=== PATIENT | female | born 1940 | race Caucasian/White ===

== ENCOUNTER 2021-09-20 14:51 | Emergency (ER) | payer MEDICARE ==
[~2021-09-20] VITALS: Ht 165.1 cm; Wt 58.2 kg
[2021-09-20 15:21] VITALS: BP 130/75
[2021-09-20] MEDS ORDERED: HYDROcodone/APAP 5/325MG 1 TAB TABLET PO ONE (16:00)
--- NOTE | 2021-09-20 16:18 | RAD ---
Exam: Left wrist 3 views INDICATION: Fall, pain TECHNIQUE: Frontal, lateral and oblique views of the left wrist Comparisons: None FINDINGS: Obliquely oriented fracture through the radial metaphysis. There is an impacted fracture of the dista l ulna. Diffuse osteopenia. There is degenerative change at the first CMC joint. Soft tissue swelling surrounding the left wrist. IMPRESSION: Obliquely oriented fracture of the distal radial metaphysis is a impacted fracture of the distal ulna Electronically signed by: Velasquez Long MD (09/20/2021 4:16 PM) HECTOR
--- NOTE | 2021-09-20 17:20 | PHYS DOC ---
Past Medical History Past Medical History: COPD Past Surgical History: Additional Past Surgical Histo: NASOPLASTY Smoking Status: Current Every Day Smoker Alcohol Use: None Drug Use: None General Adult EDM: Chief Complaint: WRIST PAIN HPI: HPI: Patient is a 81 year old female presenting to the ED today complaining of moderate left wrist pain, symptoms began after she fell 2 hours ago. Patient denies any loss of consciousness. Review of Systems: Review of Systems: Constitutional: Denies fever or chills. [] Musculoskeletal: reports left wrist pain Integument: Denies rash. [] Neurologic: Denies headache, focal weakness or sensory changes. [] Psychiatric: Denies depression or anxiety. [] Heart Score: C/O Chest Pain: N/A Risk Factors: Risk Factors: DM, Current or recent (<one month) smoker, HTN, HLP, family history of CAD, obesity. Risk Scores: Score 0 - 3: 2.5% MACE over next 6 weeks - Discharge Home Score 4 - 6: 20.3% MACE over next 6 weeks - Admit for Clinical Observation Score 7 - 10: 72.7% MACE over next 6 weeks - Early Invasive Strategies Current Medications: Current Medications Medications (Trade) Dose Ordered Sig/Jos Start Time Stop Time Status Last Admin Dose Admin Acetaminophen/ Hydrocodone Bitart (Lortab 5/325) 2 tab 1X ONCE 09/20/21 16:00 09/20/21 16:02 DC 09/20/21 16:34 2 TAB Allergies: Allergies: Allergies Coded Allergies Type Severity Reaction Last Updated Verified Sulfa (Sulfonamide Antibiotics) Allergy Intermediate 05/05/15 Yes Physical Exam: PE: Constitutional: Well developed, well nourished, no acute distress, non-toxic appearance. [] Skin: Warm, dry, no erythema, no rash. [] Back: No tenderness, no CVA tenderness. [] Extremities: Left wrist is obviously deformed. Diffuse tenderness of palpation of the wrist, no specific tenderness to the scaphoid bone, range of motion is limited to the wrist but full range of motion noted to the fingers. Adequate radial, median, ulnar sensation to the left wrist. +2 left radial pulse. Cap refill less than 2 seconds to left fingers Neurologic: Alert and oriented X 3, normal motor function, normal sensory function, no focal deficits noted. [] Psychologic: Affect normal, judgement normal, mood normal. [] Current Patient Data: Vital Signs: Vital Signs Date Time Temp Pulse Resp B/P (MAP) Pulse Ox O2 Delivery O2 Flow Rate FiO2 09/20/21 16:34 18 98 Room Air 09/20/21 15:21 98.3 65 130/75 (93) 98.3 EKG: EKG: [] Radiology/Procedures: Radiology/Procedures: []PROCEDURE: WRIST 3V LEFT Exam: Left wrist 3 views INDICATION: Fall, pain TECHNIQUE: Frontal, lateral and oblique views of the left wrist Comparisons: None FINDINGS: Obliquely oriented fracture through the radial metaphysis. There is an impacted fracture of the distal ulna. Diffuse osteopenia. There is degenerative change at the first CMC joint. Soft tissue swelling surrounding the left wrist. IMPRESSION: Obliquely oriented fracture of the distal radial metaphysis is a impacted fracture of the distal ulna Electronically signed by: Velasquez Betts MD (09/20/2021 4:16 PM) [facility] DICTATED and SIGNED BY: VELASQUEZ BETTS MD DATE: 09/20/211611 Course & Med Decision Making: Course & Med Decision Making Pertinent Labs and Imaging studies reviewed. (See chart for details) This is a 81-year-old female patient presented to the ED today with left wrist pain after falling today. Left wrist x-rays interpreted by radiologist obliquely oriented fracture of the distal radial metaphysis is a impacted fracture of the distal ulna Consulted with Ortho PA, she requested we splint patient and discharge her to home and she can follow-up with ortho clinic Patient was placed in a sugar-tong splint by the ED RN, neurovascular exam done by me is normal. Ice elevation encouraged. Provided Ortho contact information, she needs to call tomorrow and set up a follow-up appointment. Dragon Disclaimer: Naveen Disclaimer: This electronic medical record was generated, in whole or in part, using a voice recognition dictation system. Departure Departure Impression: Primary Impression: Distal radius fracture, left Qualified Codes: S52.502A - Unspecified fracture of the lower end of left radius, initial encounter for closed fracture Additional Impressions: Fracture of distal end of left ulna Qualified Codes: S52.602A - Unspecified fracture of lower end of left ulna, initial encounter for closed fracture Fall Qualified Codes: W19.XXXA - Unspecified fall, initial encounter Disposition: HOME / SELF CARE / HOMELESS Condition: STABLE Referrals: UNKNOWN PCP NAME (PCP) ROSALIA CENTENO Jr. DO Call his office tomorrow and get a follow appointment Patient Instructions: Radius Fracture with [facility], Ulnar Fracture Additional Instructions: You have distal radius and ulnar fracture. Please call the orthopedic provided tomorrow and set up a follow up appointment. Scripts Hydrocodone Bit/Acetaminophen (HYDROCODONE-APAP 5-325 ) 1 Tab Tablet 1 TAB PO PRN Q6HRS PRN for PAIN, #20 TAB 0 Refills Prov: PEMA FOWLER APRN 09/20/21 PEMA FOWLER APRN Sep 20, 2021 17:20
[2021-09-20] MEDS ORDERED: HYDR-2761 PO (17:52)
== END 2021-09-20 18:00 | disposition home or self-care (01) ==
LOC: ER 14:51
DX: S52.502A Unspecified fracture of the lower end of left radius, initial encounter for closed fracture (principal); S52.602A Unspecified fracture of lower end of left ulna, initial encounter for closed fracture; J44.9 Chronic obstructive pulmonary disease, unspecified; F17.200 Nicotine dependence, unspecified, uncomplicated; Z88.2 Allergy status to sulfonamides; W18.39XA Other fall on same level, initial encounter; Y93.89 Activity, other specified; Y92.89 Other specified places as the place of occurrence of the external cause; Y99.8 Other external cause status
CPT/HCPCS: 29125; 73120; 99283; A6450